=== PATIENT | male | born 1995 | race Caucasian/White ===

== ENCOUNTER 2025-02-08 11:49 | Inpatient (IN) | payer OTHER ==
[~2025-02-08] VITALS: Ht 182.9 cm; Wt 79.5 kg
[2025-02-08 12:36] LABS: PLATELET COUNT, AUTOMATED 294 10^3/uL (150-450)
[2025-02-08 12:58] LABS: AMPHETAMINES LEVEL URINE NEGATIVE (NEGATIVE); BARBITURATES URINE NEGATIVE (NEGATIVE)
[2025-02-08 12:59] LABS: BENZODIAZEPINES URINE NEGATIVE (NEGATIVE); CANNABINOIDS URINE NEGATIVE (NEGATIVE); COCAINE METABOLITE URINE NEGATIVE (NEGATIVE); METHADONE URINE NEGATIVE (NEGATIVE); OPIATES URINE NEGATIVE (NEGATIVE); PHENCYCLIDINE URINE NEGATIVE (NEGATIVE)
[2025-02-08 13:02] LABS: ETHYL ALCOHOL (ETHANOL) 0.005 % (0.000-0.010)
[2025-02-08 13:03] LABS: SALICYLATE LEVEL < 3.0 MG/DL (<30)
[2025-02-08 13:04] LABS: ALT/SGPT 39 U/L (7.0-40); AST/SGOT 26 U/L (<34); CALCIUM LEVEL 9.7 MG/DL (8.5-10.1); CARBON DIOXIDE LEVEL 25 MMOL/L (20-31); CHLORIDE LEVEL 104 MMOL/L (98-107); CREATININE FOR GFR 0.81 MG/DL (0.70-1.30); GLOMERULAR FILTRATION RATE > 90.0 (>60); POTASSIUM SERUM 3.9 MMOL/L (3.5-5.1); SODIUM LEVEL 141 MMOL/L (136-145)
[2025-02-08] MEDS ORDERED: HOME MED LIST COMPLETE! XX SCH (14:30)
[2025-02-08] MEDS: LORazepam 1 MG TAB PO STA (16:17)
[2025-02-08] MEDS: NICOTINE 21 MG/24 HR 1 EA TRANSDERMAL TD ONE (16:18)
[2025-02-09] MEDS ORDERED: NICOTINE 14 MG/24 HR TRANSDERMAL TD SCH (09:00)
[2025-02-09] MEDS ORDERED: OLANZapine 5 MG TAB PO PRN (10:50)
[2025-02-09] MEDS ORDERED: MOM 30 ML SUSPENSION UDC PO PRN (10:50)
[2025-02-09] MEDS ORDERED: MAALOX 30 ML SUSP *UDC PO PRN (10:50)
[2025-02-09] MEDS ORDERED: traZODone 50 MG TAB PO PRN (10:50)
[2025-02-09 11:55] VITALS: BP 123/70; TEMP 97.5
[2025-02-09] MEDS: NICOTINE 21 MG/24 HR 1 EA TRANSDERMAL TD SCH (13:42)
[2025-02-09 15:08] VITALS: BP 131/68; TEMP 98.7; O2SAT 98
[2025-02-09] MEDS: LORazepam 1 MG TAB PO PRN (20:37)
[2025-02-09] MEDS: IBUPROFEN 400 MG TAB PO PRN (20:38)
[2025-02-10 06:42] VITALS: BP 116/75; TEMP 97; O2SAT 100
[2025-02-10 08:54] VITALS: BP 116/75; TEMP 97; O2SAT 100
[2025-02-10] MEDS: IBUPROFEN 600 MG TAB PO PRN (08:55)
[2025-02-10] MEDS: SERTRALINE HCL 50 MG TAB PO SCH (09:04)
[2025-02-10 15:16] VITALS: BP 119/63; TEMP 97.6; O2SAT 96
[2025-02-10] MEDS: PRAZOSIN 1 MG CAP PO SCH (20:19)
[2025-02-10] MEDS: ACETAMINOPHEN 325 MG TAB PO PRN (20:19)
[2025-02-11 06:28] VITALS: BP 127/74; TEMP 98.3; O2SAT 100
[2025-02-11 06:29] VITALS: BP 127/74; TEMP 98.3; O2SAT 100
[2025-02-11] MEDS: HALOPERIDOL 5 MG TAB PO PRN (10:03)
[2025-02-11 15:36] VITALS: BP 116/60; TEMP 97.6; O2SAT 99
[2025-02-11 20:34] VITALS: BP 145/76
[2025-02-11] MEDS: HALOPERIDOL 5 MG TAB PO SCH (20:34)
[2025-02-12] MEDS ORDERED: HALO5TAB33 PO ×3 (09:27→12:48)
[2025-02-12] MEDS ORDERED: PRAZ1CAP PO (09:27)
[2025-02-12] MEDS ORDERED: SERT50TA29 PO (09:27)
[2025-02-12 09:55] VITALS: BP 118/61; TEMP 97.3; O2SAT 99
== END 2025-02-12 12:17 | disposition home or self-care (01) | DRG 885 ==
LOC: EDBD 11:49 → M ED 11:49 → M ED INP 02-09 10:49 → M PSY 02-09 11:56
PROVIDERS: ADMIT Internal Medicine; ATTEND Internal Medicine
DX: F32.3 Major depressive disorder, single episode, severe with psychotic features (principal); R45.851 Suicidal ideations; F43.10 Post-traumatic stress disorder, unspecified; F41.9 Anxiety disorder, unspecified; G47.00 Insomnia, unspecified; F17.290 Nicotine dependence, other tobacco product, uncomplicated; M54.50 Low back pain, unspecified; G89.29 Other chronic pain; M25.551 Pain in right hip; R45.850 Homicidal ideations

== ENCOUNTER 2025-02-18 12:52 | Emergency (ER) | payer OTHER ==
[~2025-02-18] VITALS: Ht 182.9 cm; Wt 80.7 kg
[~2025-02-18 12:52] MED LIST: HALO5TAB33 PO; PRAZ1CAP PO; SERT50TA29 PO
[2025-02-18 17:59] VITALS: BP 140/82; TEMP 98.4; O2SAT 98
== END 2025-02-18 18:01 | disposition home or self-care (01) ==
LOC: M ED 12:52
DX: G24.02 Drug induced acute dystonia (principal); F39 Unspecified mood [affective] disorder; R44.3 Hallucinations, unspecified; Z79.899 Other long term (current) drug therapy